=== PATIENT | male | born 1985 ===

== ENCOUNTER 2024-03-08 06:03 | Emergency (ER) | payer MEDICAID ==
[2024-03-08] MEDS: Ondansetron 4 MG/2 ML SDV IVPUSH STA (06:50)
[2024-03-08] MEDS: Sodium Chloride 0.9% 1,000 ML IV ONE (06:50)
[2024-03-08] MEDS: LORazepam 2 MG/ML SDV IVPUSH ONE (06:50)
[2024-03-08 07:13] LABS: HEMATOCRIT 52.1 % (42.0-52.0); HEMOGLOBIN 16.3 g/dL (14.0-18.0); IMMATURE GRAN ABSOLUTE AUTO 0.02 10^3/uL (0.00-0.49); IMMATURE GRAN PERCENT AUTO 0.2 % (0.0-4.9); LYMPHOCYTES ABSOLUTE AUTO 0.52 10^3/uL (0.60-5.00); LYMPHOCYTES PERCENT AUTO 4.4 % (24-44); MEAN CORPUSCULAR HEMOGLOBIN 22.6 pg (27.0-32.0); MEAN CORPUSCULAR HGB CONC 31.3 g/dL (32.0-36.0); MEAN CORPUSCULAR VOLUME 72.3 fL (83.0-97.0); MONOCYTES ABSOLUTE AUTO 0.36 10^3/uL (0.00-1.50); NEUTROPHILS ABSOLUTE AUTO 10.93 x10^3/uL (1.80-8.00); NEUTROPHILS PERCENT AUTO 92.4 % (41-71); PLATELET COUNT,PLT 335 10^3/uL (150-400); RED BLOOD CELL COUNT 7.21 x10^6/uL (4.50-6.00); WHITE BLOOD CELL COUNT,WBC 11.8 10^3/uL (4.0-11.0)
[2024-03-08 07:22] LABS: ALBUMIN 4.6 g/dL (3.4-5.0); CALCIUM 9.9 mg/dL (8.4-10.1); CREATININE 1.4 mg/dL (0.7-1.3); EST CRCL DRUG DOSING (CG) 69.89 mL/min; POTASSIUM,K 3.2 mEq/L (3.5-5.0); PROTEIN TOTAL,TP 9.7 g/dL (6.4-8.2)
[2024-03-08] MEDS: Potassium Chloride 10 MEQ Tab.ER PO ONE (08:01)
[2024-03-08 08:36] LABS: APPEARANCE,URINE CLEAR (CLEAR); BILIRUBIN,URINE SMALL (NEGATIVE); COLOR,URINE DARK YELLOW (YELLOW); GLUCOSE,URINE NEGATIVE (NEGATIVE); KETONES,URINE 15 mg/dL (NEGATIVE); LEUKOCYTE ESTERASE,URINE NEGATIVE (NEGATIVE); NITRITE,URINE NEGATIVE (NEGATIVE); OCCULT BLOOD,URINE NEGATIVE (NEGATIVE); PROTEIN,URINE 30 mg/dL (NEGATIVE); UROBILINOGEN,URINE 0.2 EU/dL (0.2-1.0)
[2024-03-08 08:41] LABS: BACTERIA,URINE NOT SEEN /HPF (NOT SEEN); EPITHELIAL CELLS,URINE RARE /HPF (NOT SEEN); MUCUS,URINE FEW /HPF (NOT SEEN); RBC,URINE NOT SEEN /HPF (0-5); WBC,URINE NOT SEEN /HPF (0-5)
[2024-03-08 08:42] LABS: MDMA (ECSTASY), URINE POSITIVE (NEGATIVE); METHADONE,URINE NEGATIVE (NEGATIVE); METHAMPHETAMINES,URINE POSITIVE (NEGATIVE)
[2024-03-08 08:43] LABS: AMPHETAMINES,URINE POSITIVE (NEGATIVE); BARBITURATES,URINE NEGATIVE (NEGATIVE); BENZODIAZEPINE,URINE POSITIVE (NEGATIVE); OPIATES,URINE NEGATIVE (NEGATIVE); OXYCODONE,URINE NEGATIVE (NEGATIVE); PHENCYCLIDINE,URINE NEGATIVE (NEGATIVE); TCA,URINE NEGATIVE (NEGATIVE)
== END 2024-03-08 11:22 | disposition home or self-care (01) ==
LOC: CC.ED 06:03
DX: R11.2 Nausea with vomiting, unspecified (principal); F12.90 Cannabis use, unspecified, uncomplicated
CPT/HCPCS: 36415; 80053; 80305-QW; 80307; 81001; 83735; 85025; 96361; 96374; 96375; 99284-25; A9270-GY; J2060; J2405; J7030